=== PATIENT | female | born 2000 | race Caucasian/White ===

== ENCOUNTER 2024-08-11 10:58 | Emergency (ER) | payer OTHER, SELFPAY ==
--- NOTE | ~2024-08-11 | XR_ITS ---
EXAMINATION: XR finger 3rd RT min 2V DATE: 08/11/2024 13:22 INDICATION: Rectal bite to the right third digit TECHNIQUE: Dorsal palmar, lateral and oblique views of the right third digit were obtained COMPARISON: None FINDINGS: Bone alignment is normal. No fracture. Joint spaces are normal. No cortical erosions or periosteal re action. No radiopaque foreign bodies. IMPRESSION: 1. Negative right third digit radiographs. Reviewed, dictated and finalized at location B.
[2024-08-11 11:33] VITALS: BP 120/73; PULSE 93; RESP 16; TEMP 36.7; O2SAT 100
--- NOTE | 2024-08-11 12:56 | ED.ANIMALBIT ---
HPI - Animal Bite General Chief Complaint: Animal Bite Stated Complaint: bit by racoon Time Seen by Provider: 08/11/24 12:55 Source: patient Mode of arrival: ambulatory Limitations: no limitations History of Present Illness HPI narrative: Patient presents after being bitten by [employer] owusu. She is right-hand dominant. She noted that she found four raccoon babies and was attempting to trap them to relocate by placing a box on them. However, 1 bit her, clamping down on her right third digit. She rates the pain 6/10 in severity. She does not know the date of her last tetanus shot and does not believe that she is vaccinated against rabies. She washed her hand with soapy water and used alcohol wipes Related Data Allergies Allergy/AdvReac Type Severity Reaction Status Date / Time No Known Allergies Allergy Verified 08/11/24 10:58 PENDING SALE TO [facility] Past Medical History Medical History (Updated 08/11/24 @ 13:24 by Joanna Carr MD) Right hand dominant Social History Social History (Updated 08/11/24 @ 14:07 by Joanna Carr MD) Social History: Has a boyfriend Occupation/Education: occupation Exam Narrative: GENERAL: Well-appearing, well-nourished, and in no acute distress. HEAD: Normocephalic, atraumatic. EYES: Non injected, non icteric ENT: Nares clear, no rhinorrhea or epistaxis. NECK: Supple. CHEST: Speaking in full sentences. No respiratory distress. HEART: Regular rate and rhythm. . ABDOMEN: Soft, nondistended. EXTREMITIES: Normal range of motion. No lower extremity edema. Full range of motion, able to demonstrate flexion extension of the digits though she does experience pain with flexion. SKIN: Warm, dry. Patient has multiple wounds on the right 3rd digit. There is a small bite/skin flap at the base of the nail, a superficial bite at the medial aspect of this digit as well as a superficial scrape and is small puncture wound at the base of the medial pad of the finger. Bleeding well controlled. NEURO: No focal deficits. Alert and oriented x3. PSYCH: Normal mood and affect. Course Vital Signs Vital signs: Vital Signs Temperature 98.0 F 08/11/24 11:33 Pulse Rate 93 08/11/24 11:33 Respiratory Rate 16 08/11/24 11:33 Blood Pressure 120/73 08/11/24 11:33 Pulse Oximetry 100 08/11/24 11:33 Temperature 98.0 F 08/11/24 11:33 Pulse Rate 93 08/11/24 11:33 Respiratory Rate 16 08/11/24 11:33 Blood Pressure 120/73 08/11/24 11:33 Pulse Oximetry 100 08/11/24 11:33 MDM - Animal Bite MDM Narrative Medical decision making narrative: Patient presents with multiple bites and scratches sustained by a baby raccoon earlier this morning. She cannot recall her tetanus shot and does not believe she is vaccinated against rabies. In the emergency department they are afebrile with vital signs within normal limits. Wound was irrigated copiously. Patient given pain medication, plain film imaging negative for acute process. Patient's tetanus shot is updated and she is given both rabies vaccine and immunoglobulin. The latter had a small portion subcutaneously injected close to the wound. Patient discharged home in stable condition. She is provided a work note and prescription for [id number] acetaminophen and ibuprofen. She is also given a written prescription to follow-up on days 3, 7, and 14 with the infectious disease nurse and this nurses notified and concurs with plan. Patient provided phone number to call to arrange follow-up. Differential Diagnosis Differential diagnosis: Likely bite by animal and rabies contact (potential) Imaging Data Radiologist's impression: Impressions Finger X-Ray 08/11/24 13:23 IMPRESSION: 1. Negative right third digit radiographs. Discharge Plan Discharge Clinical Impression: Bitten by raccoon, initial encounter, Right hand dominant Patient Disposition: Home, Self-Care Condition: Stable Instructions: Antib
[2024-08-11] MEDS: HYDROcodone/acetaminophen (*CRX) 5-325 MG TABLET 1 TAB PO (13:21)
[2024-08-11] MEDS: TETANUS,DIPHTHERIA,AC PERTUSSIS ADULT (0.5 ML) BOOSTRIX IM (13:21)
[2024-08-11] MEDS: RABIES VACCINE (RABAVERT) 2.5 UNITS VIAL IM (13:37)
[2024-08-11] MEDS: RABIES IMMUNE GLOBULIN/PF 300 UNITS/ML VIAL 1080 UNITS XX (13:39)
== END 2024-08-11 14:11 | disposition home or self-care (01) ==
LOC: ANHED 13:50
PROVIDERS: Emergency Provider Student in an Organized Health Care Education/Training Program
DX: S61.252A Open bite of right middle finger without damage to nail, initial encounter (principal); Z23 Encounter for immunization; Z29.14 Encounter for prophylactic rabies immune globulin; W55.51XA Bitten by raccoon, initial encounter
CPT/HCPCS: 73140; 90375; 90471; 90472; 90675; 90715; 96372; 99283; A9270

== ENCOUNTER 2024-08-25 08:18 | Outpatient (RCR) | payer OTHER, SELFPAY ==
--- NOTE | 2024-08-14 14:27 | PC.NURSE ---
AMBULATORY TO DRAW STATION FOR 2ND RABIES VACCINE. STATES IS FEELING A LITTLE TIRED BUT HAD INTERRUPTED SLEEP LAST NIGHT FOR WORK. DENIES NAUSEA, VOMITING AND DIARRHEA. DRESSING TO LEFT MIDDLE DIGIT IS WRAPPED. DENIES TENDERNESS. NO RED STREAKS OR EDEMA IS NOTED AROUND THE DRESSING. POST INJECTION SHE BECAME HOT AND NAUSEATED. TOOK SEVERAL SIPS OF WATER AND COOL COMPRESS WAS APPLIED TO BACK OF HER NECK. DID NOT PASS OUT. ALLOWED TO REST IN RECLINER UNTIL SHE WAS FEELING BETTER. COLOR RETURNED TO NORMAL FROM VERY PALE. DISCHARGED AMBULATORY WITH STEADY GAIT. TO RETURN ON 08-18-24 AT 0815 FOR 3RD INJECTION.
--- NOTE | 2024-08-18 09:17 | PC.NURSE ---
AMBULATORY TO OUTPATIENT DRAW STATION FOR 3RD RABIES VACCINE. STATES WOUND IS HEALING WITHOUT SIGNS OF INFECTION. DRESSING INTACT WITHOUT REDNESS OR BRUISING NOTED. STATES HAS BEEN HAVING INTERMITTENT NAUSEA SINCE WEDNESDAY. STATES NAUSEA IS NOT UNCOMMON FOR HER BUT IS MORE FREQUENT. ADVISED TO CONTACT PHYSICIAN IF BECOMES MORE FREQUENT OR IS CONCERNED. NO REACTION TO INJECTION TODAY. DISCHARGED AMBULATORY WITH STEADY GAIT. TO RETURN NEXT WEDNESDAY FOR 4TH INJECTION - VOICES UNDERSTANDING.
== END 2024-11-12 23:59 | disposition home or self-care (01) ==
LOC: ANHVASCINF 08:18
PROVIDERS: Visit Provider Student in an Organized Health Care Education/Training Program
DX: Z29.14 Encounter for prophylactic rabies immune globulin (principal); Z20.3 Contact with and (suspected) exposure to rabies
CPT/HCPCS: 90471; 90675